=== PATIENT | male | born 2000 | race Caucasian/White ===

== ENCOUNTER 2020-08-20 01:14 | Emergency (ER) | payer MEDICAID ==
[~2020-08-20] VITALS: Ht 182.9 cm; Wt 63.5 kg
[2020-08-20 01:20] VITALS: BP_SYST 156
--- NOTE | 2020-08-20 01:20 | NUR ---
Patient to ER bed 7 to gown for evaluation. Side rails up.
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
[2020-08-20] MEDS ORDERED: LIDOCAINE 1% 10 MG/ML, 50 ML MDV INJ ONE (02:15)
[2020-08-20] MEDS ORDERED: ACETAMINOPHEN 500 MG TABLET PO ONE (02:15)
[2020-08-20] MEDS ORDERED: DIPH-TET-PERTUS Vaccine 0.5 ML VIAL (ADACEL) I.M. ONE (02:15)
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
[2020-08-20 02:50] VITALS: BP_SYST 144
--- NOTE | 2020-08-20 02:50 | NUR ---
Patient given written and verbal discharge instructions and verbalizes understanding. ER MD discussed with patient the results and treatment provided. Patient in stable condition. ID arm band removed. NO Rx given. Patient educated on pain management and to follow up with PMD. Pain Scale 1/10. Opportunity for questions provided and answered.
== END 2020-08-20 02:50 | disposition home or self-care (01) ==
LOC: SED 01:14
DX: S01.81XA Laceration without foreign body of other part of head, initial encounter (principal); F12.90 Cannabis use, unspecified, uncomplicated; W50.0XXA Accidental hit or strike by another person, initial encounter; Y93.89 Activity, other specified; Y92.89 Other specified places as the place of occurrence of the external cause; Y99.8 Other external cause status
CPT/HCPCS: 12013; 99282; J2001

== ENCOUNTER 2020-08-20 12:04 | Emergency (ER) | payer MEDICAID ==
[~2020-08-20] VITALS: Ht 182.9 cm; Wt 70.3 kg
[2020-08-20 12:05] VITALS: BP_SYST 141
--- NOTE | 2020-08-20 12:05 | NUR ---
BROUGHT BACK TO BED #4 AND TRIAGED. REPORT GIVEN TO ZOHREH
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
--- NOTE | 2020-08-20 12:20 | NUR ---
ER at bedside examining patient.
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
[2020-08-20 12:31] VITALS: BP_SYST 141
== END 2020-08-20 12:30 | disposition home or self-care (01) ==
LOC: SED 12:04
DX: S01.111A Laceration without foreign body of right eyelid and periocular area, initial encounter (principal); X58.XXXA Exposure to other specified factors, initial encounter; Y93.89 Activity, other specified; Y92.89 Other specified places as the place of occurrence of the external cause; Y99.8 Other external cause status
CPT/HCPCS: 99282

== ENCOUNTER 2020-08-22 15:00 | Emergency (ER) | payer MEDICAID ==
[~2020-08-22] VITALS: Ht 185.4 cm; Wt 63.5 kg
[2020-08-22 15:00] VITALS: BP_SYST 137
[2020-08-22] MEDS ORDERED: ACETAMINOPHEN 500 MG TABLET PO ONE (16:00)
[2020-08-22 17:00] VITALS: BP_SYST 137
== END 2020-08-22 17:00 | disposition left against medical advice (07) ==
LOC: SED 15:00
DX: R51.9 Headache, unspecified (principal)
CPT/HCPCS: 70450-TC; 70486-TC; 76376; 99285